=== PATIENT | male | born 1945 | race Caucasian/White ===

== ENCOUNTER → 2024-11-03 | Outpatient (CLI) | payer MEDICARE, SELFPAY ==
[2024-11-03 08:51] LABS: Glucose Estimated Average 131 mg/dL (80-131); Hemoglobin A1C 6.2 % Hgb (4.8-6.0)
[2024-11-03 09:53] LABS: Alanine Aminotransferase 33 U/L (10-49); Albumin, Serum 4.7 gm/dL (3.4-4.8); Alkaline Phosphatase 106 U/L (46-116); Anion Gap 7 (7-16); Aspartate Amino Transferase 22 U/L (0-34); BUN/Creatinine Ratio 12 Ratio (12-20); Bilirubin,Total 0.4 mg/dL (0.3-1.2); Blood Urea Nitrogen 16 mg/dL (9-23); Calcium 10.2 mg/dL (8.3-10.6); Calcium (Corrected) 10.2 mg/dL (8.5-10.1); Carbon Dioxide 30.6 mMol/L (20.0-31.0); Cardiac Risk Estimate 3.8 RATIO (4.0-6.7); Chloride 108 mMol/L (98-107); Cholesterol 150 mg/dL (132-200); Creatinine (Component) 1.3 mg/dL (0.6-1.3); Globulin 2.4 gm/dL (2.3-3.5); Glucose 126 mg/dL (74-106); HDL Cholesterol 40 mg/dL (40-60); LDL Cholesterol,Calculated 72 mg/dL (0-130); Osmolality,Calculated 293 (275-295); Potassium 4.3 mMol/L (3.4-5.1); Sodium 146 mMol/L (136-145); Thyroid Stimulating Hormone 6.33 uIU/mL (0.55-4.78); Total Protein 7.1 gm/dL (5.7-8.2); Triglycerides 189 mg/dL (30-150); eGFR 57 See Note
[2024-11-03 18:46] LABS: T4 (Thyroxine) 6.3 mcg/dL (4.5-10.9)
== END | disposition home or self-care (01) ==
LOC: COPL 07:11
PROVIDERS: PCP Family Medicine; Referring Provider Nurse Practitioner Family; Visit Provider Nurse Practitioner Family
DX: E03.9 Hypothyroidism, unspecified (principal); E78.5 Hyperlipidemia, unspecified; E11.65 Type 2 diabetes mellitus with hyperglycemia
CPT/HCPCS: 36415; 80053; 80061; 83036; 84436; 84443

== ENCOUNTER 2024-11-04 06:39 | Day surgery (SDC) | payer MEDICARE, SELFPAY ==
--- NOTE | 2024-11-03 07:00 | EKG_ITS ---
[facility] Test Date: 2024-11-03 Pat Name: AZALIA LEGER Department: Room: - Gender: Male Lunch Cook: FARAZ : 1945 Requested By: John Downey Order Number: [id number] Reading MD: John Downey Measurements Intervals [place] Rate: 46 P: -5 ND: 162 QRS: -25 QRSD: 130 T: -44 QT: 436 QTc: 384 Interpretive Statements SINUS BRADYCARDIA BORDERLINE LEFT AXIS DEVIATION MODERATE INTRAVENTRICULAR CONDUCTION DELAY NONSPECIFIC ST & T-WAVE ABNORMALITY Compared to ECG 07/06/2021 13:15:21 T-wave abnormality now present /store/S0/[id number].pdf
[2024-11-03 08:58] LABS: Basophils # (Auto) 0.1 Thou/mm3 (0.0-0.2); Basophils % (Auto) 1 % (0-2.5); Eosinophils # (Auto) 0.2 Thou/mm3 (0.0-0.5); Eosinophils % (Auto) 3 % (0-10); Hematocrit 44.3 % (41.0-53.0); Hemoglobin 14.4 g/dL (13.5-16.0); Immature Granulocytes % (Auto) 0 % (0-0); Immature Granulocytes Auto 0.01 Thou/mm3 (0.00-0.00); Lymphocytes # (Auto) 1.4 Thou/mm3 (1.0-4.8); Lymphocytes % (Auto) 18 % (10-50); Mean Corpuscular HGB Conc 32.5 g/dl (31.0-37.0); Mean Corpuscular Hemoglobin 29.9 pg (25.0-35.0); Mean Corpuscular Volume 92 fL (80-100); Monocytes # (Auto) 0.9 Thou/mm3 (0.0-0.8); Monocytes % (Auto) 12 % (0-12); Neutrophils # (Auto) 4.9 Thou/mm3 (1.8-7.7); Neutrophils % (Auto) 66 % (37-80); Nucleated Red Blood Cell % 0 /100 WBC (0); Platelet Count 201 Thou/mm3 (140-440); RDW Standard Deviation 45.1 fL (35.1-43.9); Red Blood Count 4.81 Miln/mm3 (4.50-5.90); White Blood Count 7.4 Thou/mm3 (3.8-10.6)
[2024-11-03 09:05] LABS: Partial Thromboplastin Time 24.7 Seconds (22.0-36.0); Prothrombin Time 11.2 Seconds (9.0-12.2)
[2024-11-03 09:29] LABS: Anion Gap 8 (7-16); BUN/Creatinine Ratio 12 Ratio (12-20); Blood Urea Nitrogen 15 mg/dL (9-23); Calcium 10.2 mg/dL (8.3-10.6); Carbon Dioxide 29.2 mMol/L (20.0-31.0); Chloride 107 mMol/L (98-107); Creatinine (Component) 1.3 mg/dL (0.6-1.3); Glucose 128 mg/dL (74-106); Osmolality,Calculated 289 (275-295); Potassium 4.2 mMol/L (3.4-5.1); Sodium 144 mMol/L (136-145); eGFR 57 See Note
[2024-11-03 14:56] VITALS: BMI 27.8
[2024-11-04] VITALS (16 sets, daily range): BP systolic 132–181; BP diastolic 61–96; PULSE 44–69; RESP 12–17; TEMP 36.4–37.5; O2SAT 92–100
[2024-11-04] MEDS: SODIUM CHLORIDE 0.45 % 500 ML 100 ML IV (07:00)
--- NOTE | 2024-11-04 09:00 | PC.NURSE ---
0831 patient is awake, alert, breathing unlabored, s/p LHC with no PCI, arterial sheath present to right groin, no active bleeding noted. Report received from Gage BERMUDEZ, ok to remove femoral sheath now and discharge patient home 4 hrs post hemostasis time. 0840 arterial sheath removed from right groin, manual pressure applied 0900 manual pressure removed, hemostatis obtained, no active bleeding or hematoma noted, gauze and tegaderm dressing applied.
[2024-11-04] MEDS: HYDROcodone/APAP 5/325 TABLET 1 TAB PO (11:16)
--- NOTE | 2024-11-04 11:17 | PC.NURSE ---
patient moaning, sqwirming in bed, stating having back pain from laying flat, patient repositioned, medicated as order for pain, dressing to right groin assessed, no bleeding or hematoma noted, patient educated to keep right leg in flat position to reduce risk of bleeding.
--- NOTE | 2024-11-04 11:22 | ESOP_ITS ---
RE: AZALIA LEGER : 1945 DATE OF OPERATION: 11/04/2024 PROCEDURE PERFORMED: 1. Diagnostic left heart cardiac catheterization, selective coronary angiogram, left ventricular angiogram, CPT 56968. 2. Conscious sedation for 30-minute duration. 3. Ultrasound-guided access of right femoral artery. 4. Iliofemoral angiogram followed by manual compression. DIAGNOSIS: Coronary artery disease status post stent placement, angina pectoris, abnormal stress test. HISTORY AND INDICATIONS: The patient is a 78-year-old male with a history of known CAD, stent placement of right coronary artery, recurrent shortness of breath, and chest pressure on exertion. Cardiac stress test and nuclear scan showed mild ischemia in the posterior basal segments. Coronary angiogram was recommended to assess the patient has significant restenosis and possible underlying CAD and intervention and revascularization. PROCEDURE IN DETAIL: The patient was brought to cardiac catheterization laboratory where he was given 2 mg of Versed and 50 mcg of fentanyl for conscious sedation. Right radial artery is occluded. Ultrasound showed no significant flow. Previous coronary angiograms possibly resulted in right radial artery occlusion. Ulnar artery is normal. Proceeded with right femoral approach. Right femoral artery cannulated by micropuncture technique after giving 1% Xylocaine local anesthesia. Ultrasound guidance was used. 5-Uzbek sheath was introduced. Selective right coronary angiogram was performed by FR4 diagnostic catheter. Selective left coronary angiogram performed FL4 5-Uzbek diagnostic catheter. Left heart catheterization and LV angiogram performed by TIG-4 diagnostic catheter. The patient tolerated the procedure well. No complications. Iliofemoral angiogram was performed and showed that there is calcification of the femoral artery. Hence, manual compression is applied. The patient tolerated the procedure well with no complications. Cardiac catheterization showed following findings. HEMODYNAMICS: Left ventricular pressure is 110, EDP is 10, aortic pressure 110/70. No gradient across the aortic valve. Left ventricular angiogram showed evidence of mild anterolateral hypokinesis. Ejection fraction of 45% to 50%. Coronary artery angiogram showed following findings: Right coronary artery is large and dominant, showed evidence of a stent in the proximal mid segment, which is widely patent. No re-stenosis. Distal RCA and PL branches showed mild plaque. No significant stenosis. Left coronary system: Left main coronary artery showed evidence of moderate ostial stenosis, approximately 40% to 50% stenosis of the proximal and ostium of the left main coronary artery. Distal left main coronary artery is normal. Left anterior descending artery showed mild plaque. No significant stenosis. Diagonal and septal branch is normal. Left circumflex artery is nondominant, showed no significant stenosis. SUMMARY OF FINDINGS/SUGGESTIONS: 1. Moderate less than 50% stenosis of ostial and proximal left main coronary artery. 2. No evidence of restenosis, widely patent right coronary artery stent, dominant right coronary artery. 3. Mild LV dysfunction, ejection fraction 45% to 50%. RECOMMENDATIONS: The patient was reassured that the stents are widely patent. He does have [id number] left main proximal stenosis, not significant to be concerned at this time. If he has significant worsening of symptoms, may consider doing IVUS examination and at that time might consider PCI and stent placement of the left main coronary artery since bypass grafts probably will not stay open since the vessel is at least 50% patent with good EZIO-3 flow. DT: 09:50:36 TT: 11:21:00 Ref: [id number] - TID: [id number]
--- NOTE | 2024-11-04 11:22 | PC.NURSE ---
patient having severe back pain, Dr. Vallejo called by phone and informed, ok to sit up patient no more than 45 degrees, patient head of bed elevated, patient feeling relief of pain
--- NOTE | 2024-11-04 16:48 | PC.NURSE ---
1300 patient is awake, alert, breathing unlabored dressing to right groin dry with no bleeding or hematoma, ok to discharge patient home per Dr. Vallejo, discharge instructions were given to patient and brother Vineet, patient discharged home in wheelchair with all belongings. Patient states pain medication helped, pain resolved with movement and medication.
== END 2024-11-04 13:00 | disposition home or self-care (01) ==
PROVIDERS: PCP Family Medicine; Referring Provider Internal Medicine Cardiovascular Disease; Visit Provider Internal Medicine Cardiovascular Disease
PROC: (CPT 93458; principal; 2024-11-04 07:30)
DX: I25.118 Atherosclerotic heart disease of native coronary artery with other forms of angina pectoris (principal); Z95.5 Presence of coronary angioplasty implant and graft
CPT/HCPCS: 93458; 36415; 80048; 85025; 85610; 85730; 93005; 99152; 99153; A4649; C1894; J0171; J0461; J1643; J2250; J2310; J2371; J3010; J3490; J7030; Q9967; A9270; J2305

== ENCOUNTER → 2025-06-03 | Outpatient (CLI) | payer MEDICARE, SELFPAY ==
[2025-06-03 08:53] LABS: Glucose Estimated Average 137 mg/dL (80-131); Hemoglobin A1C 6.4 % Hgb (4.8-6.0)
[2025-06-03 08:55] LABS: Basophils # (Auto) 0.1 Thou/mm3 (0.0-0.2); Basophils % (Auto) 1 % (0-2.5); Eosinophils # (Auto) 0.3 Thou/mm3 (0.0-0.5); Eosinophils % (Auto) 4 % (0-10); Hematocrit 45.3 % (41.0-53.0); Hemoglobin 14.5 g/dL (13.5-16.0); Immature Granulocytes Auto 0.02 Thou/mm3 (0.00-0.00); Lymphocytes # (Auto) 2.4 Thou/mm3 (1.0-4.8); Lymphocytes % (Auto) 32 % (10-50); Mean Corpuscular HGB Conc 32.0 g/dl (31.0-37.0); Mean Corpuscular Hemoglobin 30.5 pg (25.0-35.0); Mean Corpuscular Volume 95 fL (80-100); Monocytes # (Auto) 0.7 Thou/mm3 (0.0-0.8); Monocytes % (Auto) 9 % (0-12); Neutrophils # (Auto) 3.9 Thou/mm3 (1.8-7.7); Neutrophils % (Auto) 53 % (37-80); Nucleated Red Blood Cell # 0.00 Thou/mm3 (0.00-0.00); Nucleated Red Blood Cell % 0 /100 WBC (0); Platelet Count 192 Thou/mm3 (140-440); RDW Standard Deviation 48.7 fL (35.1-43.9); Red Blood Count 4.75 Miln/mm3 (4.50-5.90); White Blood Count 7.4 Thou/mm3 (3.8-10.6)
[2025-06-03 09:13] LABS: Prostate Specific Antigen 2.76 ng/mL (0-4.00)
[2025-06-03 09:16] LABS: Alanine Aminotransferase 21 U/L (10-49); Albumin, Serum 4.5 gm/dL (3.4-4.8); Albumin/Globulin Ratio 1.9 (1.2-2.2); Alkaline Phosphatase 97 U/L (46-116); Anion Gap 15 (7-16); Aspartate Amino Transferase 21 U/L (0-34); BUN/Creatinine Ratio 8 Ratio (12-20); Bilirubin,Total 0.5 mg/dL (0.3-1.2); Blood Urea Nitrogen 13 mg/dL (9-23); Calcium 10.2 mg/dL (8.3-10.6); Calcium (Corrected) 10.2 mg/dL (8.5-10.1); Carbon Dioxide 23.5 mMol/L (20.0-31.0); Cardiac Risk Estimate 4.7 RATIO (4.0-6.7); Chloride 112 mMol/L (98-107); Cholesterol 165 mg/dL (132-200); Creatinine (Component) 1.7 mg/dL (0.6-1.3); Globulin 2.4 gm/dL (2.3-3.5); Glucose 133 mg/dL (74-106); HDL Cholesterol 35 mg/dL (40-60); LDL Cholesterol,Calculated 97 mg/dL (0-130); Osmolality,Calculated 300 (275-295); Potassium 4.7 mMol/L (3.4-5.1); Sodium 150 mMol/L (136-145); Thyroid Stimulating Hormone 2.60 uIU/mL (0.55-4.78); Total Protein 6.9 gm/dL (5.7-8.2); Triglycerides 164 mg/dL (30-150); eGFR 41 See Note
[2025-06-03 09:24] LABS: Creatinine MALB Rnd Ur 445 mg/dL (30-125); Microalbumin Creat Ratio 14 mg/gCrea (<30); Microalbumin, Random Urine 64 mg/L (0-300)
== END | disposition home or self-care (01) ==
LOC: COPL 07:50
PROVIDERS: PCP Family Medicine; Referring Provider Nurse Practitioner Family; Visit Provider Nurse Practitioner Family
DX: Z00.00 Encounter for general adult medical examination without abnormal findings (principal); I10 Essential (primary) hypertension; E11.65 Type 2 diabetes mellitus with hyperglycemia; E78.5 Hyperlipidemia, unspecified; F52.21 Male erectile disorder
CPT/HCPCS: 36415; 80053; 80061; 82043; 82570; 83036; 84153; 84443; 85025

== ENCOUNTER → 2025-06-29 | Outpatient (CLI) | payer MEDICARE, SELFPAY ==
--- NOTE | 2025-06-29 15:00 | XR_ITS ---
Examination: CT chest, without intravenous contrast. Sagittal and coronal 2-D reconstructions. Exam date and time: June 29, 2025 1454 hours INDICATIONS: Nicotine dependence, smoking history 60 years. CTDI:vol (mGy) 11.8 DLP: (mGycm) 455 Technique: Multiple 3.0 mm axial sections of the chest to been obtained. Bone and lung density settings are obtained. Sagittal and coronal 2-D reconstructions have been obtained. Low dose protocols were performed. One or more of the following dose reduction techniques were used; automated exposure control, adjustment of the mA and/or KV according to patient size, use of iterative reconstruction technique. Findings: No thoracic aortic aneurysm dilatation Pulmonary artery segments are not enlarged. Prominent calcification left main left anterior descending right coronary arteries Mild enlargement cardiac contour 2 mm pulmonary nodule right upper lobe image 65 4 mm pulmonary nodule left upper lobe image 135 4 mm soft pulmonary nodule right lower lobe image 5 No pneumonia or pulmonary edema 5 mm right lobe liver cyst No gallstones No pancreatic mass Kidneys partially visualized with 1 mm bilateral renal calculi Moderate osteopenia IMPRESSION: No mediastinal lymphadenopathy Noncalcified pulmonary nodules as above, with this study is baseline recommend 6 month follow-up CT chest without contrast
== END | disposition home or self-care (01) ==
LOC: CCTX 14:08
PROVIDERS: PCP Nurse Practitioner Family; Referring Provider Nurse Practitioner Family; Visit Provider Nurse Practitioner Family
DX: R91.8 Other nonspecific abnormal finding of lung field (principal); Z87.891 Personal history of nicotine dependence
CPT/HCPCS: 71271

== ENCOUNTER → 2025-08-13 | Outpatient (CLI) | payer MEDICARE, SELFPAY ==
--- NOTE | 2025-08-13 | XR_ITS ---
Examination: Knee bilateral, 7 views Technique: Knee AP, lateral, oblique each knee, bilateral axial knees single view, total 7 views Date and time of exam: August 13, 2025, 0721 hours INDICATIONS: Bilateral knee pain 2 years. FINDINGS: Mild osteopenia. 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
--- NOTE | 2025-08-13 | XR_ITS ---
EXAMINATION: Bilateral AP knee single view TECHNIQUE: Standing bilateral AP knees single view Date and time: August 13 0 25, 0723 hours INDICATIONS: Bilateral knee pain 2 years. FINDINGS: Mild osteopenia. Mild to moderate narrowing medial joint space right knee Moderate narrowing medial joint space left knee. No fracture or dislocation No ossified joint bodies IMPRESSION: Mild to moderate narrowing medial joint space right knee Moderate narrowing medial joint space left knee
--- NOTE | 2025-08-13 | XR_ITS ---
Examination: Lumbar spine, 5 views Technique: Lumbar spine AP, lateral, coned lateral lower lumbar spine, bilateral obliques 5 views Exam date and time: August 13, 2025, 0721 hours INDICATIONS: Lower back pain radiating to the legs 2 years COMPARISON: January 28, 2021 FINDINGS: Lumbar levoscoliosis 10 degrees Prominent osteopenia Advanced diffuse facet arthropathy Incidental note heavy abdominal aortic calcification measuring 3.9 cm in dimension No lumbar fracture Diffuse moderate lumbar degenerative disc disease Moderate lumbar spondylosis IMPRESSION: Diffuse moderate lumbar degenerative disc disease with significant spinal stenosis 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
[2025-08-13 09:06] LABS: Anion Gap 13 (7-16); BUN/Creatinine Ratio 11 Ratio (12-20); Blood Urea Nitrogen 16 mg/dL (9-23); Carbon Dioxide 26.0 mMol/L (20.0-31.0); Chloride 111 mMol/L (98-107); Creatinine (Component) 1.4 mg/dL (0.6-1.3); Potassium 4.1 mMol/L (3.4-5.1); Sodium 150 mMol/L (136-145)
[2025-08-13 09:07] LABS: Calcium 10.1 mg/dL (8.3-10.6); Glucose 127 mg/dL (74-106); Osmolality,Calculated 301 (275-295); eGFR 52 See Note
== END | disposition home or self-care (01) ==
LOC: CDIM 06:39
PROVIDERS: PCP Family Medicine; Referring Provider Nurse Practitioner Family; Visit Provider Nurse Practitioner Family
DX: M51.360 Other intervertebral disc degeneration, lumbar region with discogenic back pain only (principal); M48.061 Spinal stenosis, lumbar region without neurogenic claudication; I71.40 Abdominal aortic aneurysm, without rupture, unspecified; M25.862 Other specified joint disorders, left knee; M25.861 Other specified joint disorders, right knee; M17.0 Bilateral primary osteoarthritis of knee
CPT/HCPCS: 36415; 72110; 73564; 73565; 80048

== ENCOUNTER → 2025-09-23 | Outpatient (CLI) | payer MEDICARE, SELFPAY ==
--- NOTE | 2025-09-23 15:00 | XR_ITS ---
EXAMINATION: Ultrasound abdominal aorta TECHNIQUE: Grayscale sonographic images abdominal aorta Date and time: September 23, 2025: 1513 hours INDICATIONS: Heavily calcified abdominal aorta lumbar plain films August 13, 2025 FINDINGS: Transverse dimension proximal aorta 2.3 cm mid aorta 3.2 cm Distal aorta 2.0 cm right iliac 1.1 cm left iliac 1.1 cm IMPRESSION: Mild aneurysmal dilatation mid abdominal aorta, consider 6-month follow-up
== END | disposition home or self-care (01) ==
LOC: CDIM 15:02
PROVIDERS: PCP Nurse Practitioner Family; Referring Provider Nurse Practitioner Family; Visit Provider Nurse Practitioner Family
DX: I71.40 Abdominal aortic aneurysm, without rupture, unspecified (principal)
CPT/HCPCS: 76706

== ENCOUNTER → 2025-10-01 | Outpatient (CLI) | payer MEDICARE, SELFPAY ==
--- NOTE | 2025-10-01 10:30 | XR_ITS ---
Examination: MRI lumbar spine without contrast Date and time of exam: October 01, 2025, 1113 hours, comparison January 25, 2023 INDICATIONS: Low back pain 2 years radiating down the right leg Technique: Multiple MRI axial and sagittal sections lumbar spine. Sagittal T2-weighted images, TR 3500, TE 118 T1 weighted transverse sections, TR 688 T8.5, T2-weighted sagittal sections T1 weighted sagittal sections TR 621, TE 30 T2 axial sections, TR 4, 190, TE 84. Findings: Transitional L5 lumbar vertebral body No lumbar fracture Diffuse lumbar disc desiccation L5-S1 no disc protrusion, moderate facet arthropathy evident L4-L5 partially extruded 5 mm central lumbar disc bulge extending to the foraminal regions L3-L4 3 mm right paracentral disc bulge L2-L3 4 mm left paracentral disc bulge IMPRESSION: L4-L5 partially extruded 5 mm central lumbar disc bulge extending to the foraminal regions L3-L4 3 mm right paracentral disc bulge L2-3 4 mm left paracentral disc bulge
== END | disposition home or self-care (01) ==
PROVIDERS: PCP Nurse Practitioner Family; Referring Provider Nurse Practitioner Family; Visit Provider Nurse Practitioner Family
DX: M51.370 Other intervertebral disc degeneration, lumbosacral region with discogenic back pain only (principal); M51.360 Other intervertebral disc degeneration, lumbar region with discogenic back pain only; M51.26 Other intervertebral disc displacement, lumbar region
CPT/HCPCS: 72148